=== PATIENT | male | born 1940 | race Two or more races ===

== ENCOUNTER 2016-04-18 22:53 | Emergency (ER) | payer MEDICARE, MEDICAID ==
[~2016-04-18] VITALS: Ht 165.1 cm; Wt 71.7 kg
[2016-04-18 23:15] VITALS: BP 150/82
[2016-04-19] MEDS ORDERED: LORazepam Inj 2mg/ml 1ml IV ONE (00:30)
--- NOTE | 2016-04-19 00:38 | Emergency Room Report ---
History of Present Illness General Chief Complaint: Dizziness Source: Patient Present Illness HPI This is a 76-year-old male with no significant past medical history other than BPH. He present with chief complaint of dizziness for the last several days. He said is worse when he goes from a supine to an upright position. He felt dizzy and room spinning. He saw his from a care DrFitz who prescribed him meclizine. It is not helping. Denies any focal deficit. Denies any nausea vomiting. Denies any other complaint. He does have a long-standing history of sinus problem. Worse with cold weather. Allergies: Coded Allergies: Dust (Verified Allergy, Intermediate, 04/18/16) Patient History Past Medical History: none, see triage record, old chart reviewed Past Surgical History: other Pertinent Family History: none Social History: Denies: smoking Immunizations: other Reviewed Nursing Documentation: PMH: Agreed, PSxH: Agreed Nursing Documentation-PM Past Medical History: No Stated History Review of Systems Eye: Denies: blurred vision, eye pain ENT: Denies: ear pain, nose congestion, throat swelling Respiratory: Denies: cough, shortness of breath Cardiovascular: Denies: chest pain, palpitations Gastrointestinal: Denies: abdominal pain, diarrhea, nausea, vomiting Musculoskeletal: Denies: back pain, joint pain Skin: Denies: rash Neurological: Denies: headache, numbness Endocrine: Denies: increased thirst, increased urine Hematologic/Lymphatic: Denies: easy bruising All Other Systems: negative except mentioned in HPI Physical Exam Vital Signs Date Time Temp Pulse Resp B/P Pulse Ox O2 Delivery O2 Flow Rate FiO2 04/18/16 23:02 97.9 74 20 154/85 100 Room Air vitals showed hypertension Sp02 EP Interpretation: reviewed, normal General Appearance: well appearing, no apparent distress, alert Head: normocephalic, atraumatic Eyes: bilateral eye EOMI, bilateral eye PERRL ENT: hearing grossly normal, normal pharynx Neck: full range of motion, supple, no meningismus Respiratory: chest non-tender, lungs clear, normal breath sounds Cardiovascular #1: regular rate, rhythm, no murmur Gastrointestinal: normal bowel sounds, non tender, no mass, no organomegaly, no bruit, non-distended Musculoskeletal: back normal, gait/station normal, normal range of motion Psychiatric: mood/affect normal Skin: warm/dry Medical Decision Making Diagnostic Impression: Primary Impression: Dizziness of unknown cause Additional Impression: Sinusitis Qualified Codes: J32.4 - Chronic pansinusitis ER Course Patient presents with dizziness. He felt better now. No evidence of CVA, and TBI, VBI to name a few. Other differential is included labyrinthitis, inner ear infection, viral illness, inflammation. He already being treated for his chronic sinus problem. We'll discharge home with reassurance. Lab Results Impression labs unremarkable EKG Diagnostic Results Rate: normal Rhythm: NSR ST Segments: no acute changes Rhythm Strip Diag. Results EP Interpretation: yes Rate: 65 Rhythm: NSR, no PVC's, no ectopy Chest X-Ray Diagnostic Results EP Interpretation: Yes Findings: no consolidation, no effusion, no pneumothorax, no acute cardiopulmonary disease Number of Views: 1 CT/MRI/US Diagnostic Results CT/MRI/US Diagnostic Results : Imaging Test Ordered: CT head Impression read by radiologist Extensive para nasal sinus disease Last Vital Signs Date Time Temp Pulse Resp B/P Pulse Ox O2 Delivery O2 Flow Rate FiO2 04/18/16 23:02 97.9 74 20 154/85 100 Room Air Status: improved Disposition: HOME, SELF-CARE Condition: Stable Patient Instructions: Vertigo Additional Instructions: You may take your meclizine, 2 pills every 6 hours as needed. Followup with your DrFitz within a week. Return if symptom worsen. JANE BRISCOE M.D. Apr 19, 2016 00:38
[2016-04-19 00:51] LABS: BASOPHILS % (AUTO) 1.3 % (0.0-2.0); EOSINOPHILS % (AUTO) 3.4 % (0.0-3.0); LYMPHOCYTES % (AUTO) 32.6 % (20.0-45.0); MEAN CORPUSCULAR HEMOGLOBIN 31.3 PG (27.0-31.0); MEAN CORPUSCULAR HGB CONC 33.7 G/DL (32.0-36.0); MEAN CORPUSCULAR VOLUME 93 FL (80-99); MONOCYTES % (AUTO) 8.9 % (1.0-10.0); NEUTROPHILS % (AUTO) 53.9 % (45.0-75.0); PLATELET COUNT 189 K/UL (150-450); RED BLOOD COUNT 4.44 M/UL (4.70-6.10); RED CELL DISTRIBUTION WIDTH 12.5 % (11.6-14.8); WHITE BLOOD COUNT 6.3 K/UL (4.8-10.8)
[2016-04-19 01:00] VITALS: BP 140/83
[2016-04-19 01:12] LABS: ALANINE AMINOTRANSFERASE 14 U/L (3-41); ALBUMIN/GLOBULIN RATIO 1.1 (1.0-2.7); ANION GAP 14 (5-15); ASPARTATE AMINO TRANSFERASE 19 U/L (5-40); CALCIUM 8.9 mg/dL (8.6-10.2); CARBON DIOXIDE 24 mEQ/L (20-30); CHLORIDE 102 mEQ/L (98-107); HEMOLYSIS 10; POTASSIUM 3.6 mEQ/L (3.4-4.9); SODIUM 140 mEQ/L (135-145); TOTAL PROTEIN 6.7 g/dL (6.6-8.7)
[2016-04-19 01:19] LABS: APPEARANCE,URINE CLEAR; KETONES,URINE NEGATIVE (NEGATIVE); LEUKOCYTE ESTERASE ,URINE NEGATIVE (NEGATIVE); NITRITE,URINE NEGATIVE (NEGATIVE); PH,URINE 6 (4.5-8.0); PROTEIN,URINE NEGATIVE (NEGATIVE); UROBILINOGEN,URINE NORMAL MG/DL (0.0-1.0)
[2016-04-19 02:33] VITALS: BP 138/83
[2016-04-19 05:22] LABS: RBC,URINE 0 /HPF (0 - 0); WBC,URINE 0 /HPF (0 - 0)
--- NOTE | 2016-04-19 09:31 | Diagnostic Imaging Report ---
Indication: Chest pain Technique: Single portable AP view of the chest. Findings: Comparison: None. Suboptimal inspiration limits evaluation. Mild elevation apparent left hemidiaphragm. Cardiac silhouette partially obscured. The bones and extra pulmonary soft tissues, remainder of the cardiomediastinal silhouette, pulmonary vasculature, visualized portions of pulmonary parenchyma and pleural surfaces are unremarkable. IMPRESSION: Mild elevation apparent left hemidiaphragm, nonspecific, acuity indeterminate Otherwise no evidence of acute cardiopulmonary disease, limited as described. Basal abnormalities may be missed. Upright PA and lateral chest radiographs with better inspiratory effort and optimal technique recommended for more complete evaluation..
--- NOTE | 2016-04-19 10:46 | Diagnostic Imaging Report ---
Indications: Vertigo Technique: Continuous helical CT imaging of the brain was performed with nonionic exposure control on a Siemens sensation [address] scanner. Axial and coronal images were reconstructed at 5 mm slice thickness and interval. CTDI volume(s): 70 mGy Total DLP: 1822 mGy-cm Findings: Comparison: None Mild low attenuation is present in the bilateral periventricular white matter. Ventricles, cisterns, and sulci are diffusely prominent. Frontal lobes appear most severely affected. Low attenuation fluid collections in the extra-axial spaces over both frontal lobes, each up to 10 mm diameter. No evidence of mass or hemorrhage, mass effect, midline shift, hydrocephalus, or increased intracranial pressure. Bone window images are unremarkable. Mucoperiosteal thickening throughout paranasal sinuses. Bilateral mastoid air cells clear.. IMPRESSION: No evidence of acute intracranial pathology Early/subtle acute abnormalities may be missed, however. If clinically indicated, MRI of the brain without and with gadolinium may be of benefit in further evaluation. Bilateral cerebral periventricular white matter low attenuation, nonspecific, likely chronic microvascular ischemic in nature. Atrophy with bifrontal prominence. Bifrontal extra-axial low attenuation fluid collections may simply represent prominent subarachnoid spaces due to bifrontal atrophy. Superimposed chronic subdural fluid collections not excludable. Pansinusitis This correlates with preliminary report generated overnight by [employer]. The CT scanner at [facility] is accredited by the [employer] and the scans are performed using protocols designed to limit radiation exposure to as low as reasonably achievable to attain images of sufficient resolution adequate for diagnostic evaluation.
--- NOTE | 2016-04-19 17:58 | Cardiology Report ---
APPROVED REPORT EKG Measurement Heart [id number] Normal sinus rhythm Normal ECG
== END 2016-04-19 02:33 | disposition home or self-care (01) ==
LOC: EMR 23:20
DX: R42 Dizziness and giddiness (principal); J32.4 Chronic pansinusitis
CPT/HCPCS: 36415; 70450; 71010; 80053; 81001; 85025; 93005; 96361; 96374